=== PATIENT | male | born 1950 | race Caucasian/White ===

== ENCOUNTER → 2016-11-18 | Outpatient (CLI) | payer BC ==
[2014-10-03 13:40] VITALS: BP 126/75
[~2016-11-18] MED LIST: AMIO200T2 PO; FLUT9.9S NS; LISI-334 PO; MULT1CAP15 PO; PROP20TA PO; WARF5TAB7 PO; XARELTO PO
--- NOTE | 2016-11-18 11:47 | CARD ---
APPROVED REPORT EXAM: Two-dimensional and M-mode echocardiogram with Doppler and color Doppler. Other Information Quality : GoodHR: 57bpm Rhythm : Bradycardia INDICATION Paroxysmal atrial fibrillation RISK FACTORS Hypertension 2D DIMENSIONS RVDd3.8 (2.9-3.5cm)Left Atrium(2D)4.1 (1.6-4.0cm) IVSd1.0 (0.7-1.1cm)Aortic Root(2D)3.1 (2.0-3.7cm) LVDd4.9 (3.9-5.9cm)LVOT Diameter2.2 (1.8-2.4cm) PWd1.0 (0.7-1.1cm)LVDs3.4 (2.5-4.0cm) FS (%) 30.2 %SV63.2 ml LVEF(%)57.3 (>50%) Aortic Valve AoV Peak Gregor.196.1cm/sAoV VTI47.2cm AO Peak GR.15.4mmHgLVOT Peak Gregor.103.1cm/s AO Mean GR.9mmHgAVA (VMAX)1.97cm2 AI P 1/2 Wwcm711ki Mitral Valve MV E Deqtrtes91.0cm/sMV E Peak Gr.3mmHg MV DECEL [id number] A Gzdknwru21.7cm/s MV E Mean Gr.1mmHgE/A Ratio1.0 MV A Mgugtvqu27jzALN Planimetry1.93cm2 Pulmonary Valve PV Peak Jcvhxdvd130.7cm/s Tricuspid Valve TR P. Onhxeomk110ss/sTR Peak Gr.34mmHg Pulmonary Vein S1 Puoelstb07.7cm/sD2 Khriweai674.8cm/s PVa dbpbtcnt95panq LEFT VENTRICLE The left ventricle is normal size. There is normal left ventricular wall thickness. The left ventricu lar systolic function is normal and the ejection fraction is within normal range. The Ejection Fracti on is 55-60%. There is normal LV segmental wall motion. The left ventricular diastolic function and f illing is normal for age. RIGHT VENTRICLE The right ventricle is mildly dilated. There is normal right ventricular wall thickness. The right ve ntricular systolic function is normal. ATRIA The left atrium is moderately dilated. The right atrium size is normal. The interatrial septum is int act with no evidence for an atrial septal defect or patent foramen ovale as noted on 2-D or Doppler i maging. AORTIC VALVE The aortic valve is moderately sclerotic. The aortic valve is trileaflet but functionally bicuspid du e to the fusion of non and left coronary cusps. Doppler and Color Flow revealed moderate aortic regur gitation. There is no significant aortic valvular stenosis. MITRAL VALVE The mitral valve leaflets are mildly thickened. There is no evidence of mitral valve prolapse. There is no mitral valve stenosis. Doppler and Color Flow revealed mild to moderate mitral regurgitation. TRICUSPID VALVE Doppler and Color Flow revealed mild tricuspid regurgitation. The pulmonary artery systolic pressure is estimated at 37 mmHg. There is mild pulmonary hypertension. PULMONIC VALVE The pulmonic valve is not well visualized but appears to open adequately. Doppler and Color Flow reve aled mild pulmonic valvular regurgitation. There is no pulmonic valvular stenosis by spectral Doppler . GREAT VESSELS The aortic root is normal in size. The ascending aorta is normal in size. The IVC is normal in size a nd collapses >50% with inspiration. PERICARDIAL EFFUSION There is no evidence of significant pericardial effusion. Critical Notification Critical Value: No <Conclusion> The left ventricular systolic function is normal and the ejection fraction is within normal range. Th e Ejection Fraction is 55-60%. There is normal LV segmental wall motion. The aortic valve is moderately sclerotic. The aortic valve is trileaflet but functionally bicuspid du e to the fusion of non and left coronary cusps. Doppler and Color Flow revealed moderate aortic regurgitation. Doppler and Color Flow revealed mild to moderate mitral regurgitation. Doppler and Color Flow revealed mild tricuspid regurgitation. The pulmonary artery systolic pressure is estimated at 37 mmHg. There is mild pulmonary hypertension.
== END | disposition home or self-care (01) ==
LOC: ECHO 08:46
PROVIDERS: ATTEND Internal Medicine Cardiovascular Disease
DX: I08.3 Combined rheumatic disorders of mitral, aortic and tricuspid valves (principal); I48.0 Paroxysmal atrial fibrillation; I27.2 Other secondary pulmonary hypertension
CPT/HCPCS: 93306

== ENCOUNTER 2016-11-21 07:35 | Outpatient (CLI) | payer BC ==
[~2016-11-21] VITALS: Ht 185.4 cm; Wt 82.6 kg
[2016-11-21] VITALS (15 sets, daily range): BP systolic 135–219; BP diastolic 72–101
[2016-11-21] MEDS ORDERED: WARF5TAB7 PO (08:08)
[2016-11-21] MEDS ORDERED: NITR0.4T22 SL (08:12)
[2016-11-21 08:21] LABS: HEMATOCRIT 40.6 % (39.0-53.0); HEMOGLOBIN 13.7 g/dL (13.0-17.5); RED BLOOD COUNT 4.28 x10^6/uL (4.30-5.70); RED CELL DISTRIBUTION WIDTH 12.6 % (11.5-14.5); WHITE BLOOD COUNT 5.9 x10^3/uL (4.0-11.0)
[2016-11-21 08:31] LABS: INR 3.3 (0.8-1.1); PROTHROMBIN TIME PATIENT 31.4 SEC (11.7-14.0)
[2016-11-21 08:32] LABS: CALCIUM 8.4 mg/dL (8.5-10.1); CREATININE 1.1 mg/dL (0.7-1.3); GFR 67.4; POTASSIUM 4.2 mmol/L (3.5-5.1)
[2016-11-21] MEDS ORDERED: IOHEXOL 300 MG/ML 100ML VIAL. ONE ×2 (09:20→10:16)
--- NOTE | 2016-11-21 09:20 | PDOC ---
MODERATE SEDATION ASSESSMENT RISKS/ALTERNATIVES Risks/Alternatives Risks and alternatives of this type of sedation and procedure discussed with: RISK/ALTERNATIVES: Patient H & P ON CHART H & P H & P on chart and reviewed for co-morbid conditions and appropriate labs. H&P ON CHART: Yes STATUS PREG STATUS ASSESSED: N/A MEDS/ALLERGIES REVIEWED Meds/Allergies Reviewed Medications and Allergies including time and route of recently administered narcotics and sedatives. MEDS/ALLERGIES REVIEWED: Yes ASA RATING ASA RATING: II AIRWAY ASSESSMENT Airway Assessment Airway patency, oral function limitations, presence of caps, crowns, dentures, partials, and ability to extend neck assessed. AIRWAY ASSESSMENT: Yes MALLAMPATI SCORE MALLAMPATI SCORE: II PRE-SEDATION ASSESSMENT PRE-SEDATION ASSESSMENT: Yes ESTHER GALAN MD Nov 21, 2016 09:20
[2016-11-21] MEDS ORDERED: LIDOCAINE 2% 20 ML VIAL. ONE (09:21)
[2016-11-21] MEDS ORDERED: fentaNYL PF VIAL 100 MCG/2 ML VIAL ONE (10:24)
[2016-11-21] MEDS ORDERED: VERAPAMIL 5 MG/2 ML VIAL. ONE (10:24)
[2016-11-21] MEDS ORDERED: HEPARIN for IV BOLUS 10,000 UNIT/10 ML VIAL. ONE (10:24)
[2016-11-21] MEDS ORDERED: MIDAZOLAM HCL/PF 2 MG/2 ML VIAL. ONE (10:24)
[2016-11-21] MEDS ORDERED: NITROGLYCERIN 200 MCG/2 ML SYRINGE FOR CATH/VASC LAB. ONE (10:26)
[2016-11-21] MEDS ORDERED: IOHEXOL 300 MG/ML 100ML VIAL. IART ONE (10:30)
[2016-11-21] MEDS ORDERED: fentaNYL PF VIAL 100 MCG/2 ML VIAL IV ONE (10:30)
[2016-11-21] MEDS ORDERED: NITROGLYCERIN 200 MCG/2 ML SYRINGE FOR CATH/VASC LAB. IART ONE (10:30)
[2016-11-21] MEDS ORDERED: HEPARIN for IV BOLUS 10,000 UNIT/10 ML VIAL. IART ONE (10:30)
[2016-11-21] MEDS ORDERED: MIDAZOLAM HCL/PF 2 MG/2 ML VIAL. IV ONE (10:30)
[2016-11-21] MEDS ORDERED: VERAPAMIL 5 MG/2 ML VIAL. IART ONE (10:30)
[2016-11-21] MEDS ORDERED: LIDOCAINE 2% 20 ML VIAL. IJ ONE (10:30)
[2016-11-21] MEDS ORDERED: IV 1/2 NORMAL SALINE 1,000 ML IV SCH (10:44)
[2016-11-21] MEDS ORDERED: NITROGLYCERIN SUBLINGUAL 0.4 MG BOTTLE OF 25. SL PRN (10:45)
[2016-11-21] MEDS ORDERED: CONTRAST GIVEN MC PRN (10:45)
--- NOTE | 2016-11-21 11:17 | CARD ---
APPROVED REPORT Procedure(s) performed: Left heart catheterization, selective coronary angiography and left ventricul ography via left transradial approach. Moderate sedation: 23 min INDICATION The indication(s) include : unstable angina . PROCEDURE NARRATIVE After explaining the risks, benefits and alternative options, informed consent was obtained from carlito ent. Patient was brought to the cardiac Chiropractic Neurologist and left wrist was prepped and draped in the usual fashion after confirming a positive modified Migue's test (failed Migue's right wrist). Arterial acc ess was obtained in the right radial artery and a 6 [place] sheath was inserted. 6 [place] JL4 and 6 F [place] JR4 catheters were used to perform selective angiography of left and right coronary arteries. 6 [place] pigtail catheter was used to perform left ventriculography. Patient tolerated the procedure well. Hemostasis was achieved using TR band. There were no immediate complications. The following findings were noted. FINDINGS 1. Hemodynamics: Left ventricular end-diastolic pressure of 9 mmHg. No pullback gradient across the aortic valve. 2. Left ventriculography: Normal left ventricle systolic function with ejection fraction estimated at 60%. No significant mitral regurgitation seen. 3. Coronary angiography: a. The left main coronary artery arose from the left sinus of Valsalva, gave rise to the left anteri or descending and left circumflex arteries and did not show any significant stenosis. b. The left anterior descending artery did not show any significant stenosis. c. The left circumflex artery did not show any significant stenosis. d. The right coronary artery was a large and dominant vessel arising from the right sinus of Valsalv a that did not show any significant stenosis. Conclusion 1. No significant coronary artery disease 2. Normal left ventricular systolic function with ejection fraction estimated at 60%. Recommendations Cardiac Risk Reduction Program
== END 2016-11-21 15:30 | disposition home or self-care (01) ==
LOC: CCL 07:35
PROVIDERS: ATTEND Internal Medicine Cardiovascular Disease
DX: I20.0 Unstable angina (principal); I48.91 Unspecified atrial fibrillation; M19.91 Primary osteoarthritis, unspecified site; Z87.39 Personal history of other diseases of the musculoskeletal system and connective tissue; Z72.89 Other problems related to lifestyle
CPT/HCPCS: 36415; 80048; 85027; 85610; 85730; 93458; 99152; 99153; C1769; C1892; J1644; J2250; J3010; J3490; Q9967; J2001

== ENCOUNTER → 2018-10-26 | Day surgery (SDC) | payer BC ==
[~2018-10-26] MED LIST changes: -AMIO200T2 PO; +AMIO200T4 PO; +FERR325T14 PO; +HYDROmorphone 2 MG/ML VIAL IV PRN; +IV RINGERS,LACTATED 1000ML 1,000 ML IV SCH; +LIDOCAINE 2% PF 5 ML VIAL. ONE; +MORPHINE SULFATE 2 MG/ML VIAL. IV PRN; +NITR0.4T22 SL; +ONDANSETRON PF 4 MG/2 ML VIAL. IV PRN; +PROCHLORPERAZINE 10 MG/2 ML VIAL. IV PRN; +PROPOFOL 40 ML IV ONE; +SILD20TA2 PO; +WARF-31 PO; -WARF5TAB7 PO; +fentaNYL PF VIAL 100 MCG/2 ML VIAL IV PRN
[2018-10-26 14:00] VITALS: BP 171/80
== END ==
LOC: SURG 12:28
PROVIDERS: ATTEND Surgery
DX: K57.30 Diverticulosis of large intestine without perforation or abscess without bleeding (principal); I10 Essential (primary) hypertension; I48.0 Paroxysmal atrial fibrillation; I25.10 Atherosclerotic heart disease of native coronary artery without angina pectoris; Z98.890 Other specified postprocedural states; Z98.42 Cataract extraction status, left eye; Z98.41 Cataract extraction status, right eye; Z72.89 Other problems related to lifestyle; Z96.1 Presence of intraocular lens
CPT/HCPCS: 45378; J2001; J2704

== ENCOUNTER → 2018-12-17 | Outpatient (CLI) | payer BC ==
[2018-10-26 14:00] VITALS: BP 171/80
[~2018-12-17] MED LIST changes: -HYDROmorphone 2 MG/ML VIAL IV PRN; -IV RINGERS,LACTATED 1000ML 1,000 ML IV SCH; -LIDOCAINE 2% PF 5 ML VIAL. ONE; -MORPHINE SULFATE 2 MG/ML VIAL. IV PRN; -ONDANSETRON PF 4 MG/2 ML VIAL. IV PRN; -PROCHLORPERAZINE 10 MG/2 ML VIAL. IV PRN; -PROPOFOL 40 ML IV ONE; +REGADENOSON 0.4 MG/5 ML DISP.SYRIN. IV ONE; -fentaNYL PF VIAL 100 MCG/2 ML VIAL IV PRN
--- NOTE | 2018-12-17 14:30 | RAD ---
MR#: [id number] Date of Study: 12/17/2018 Ordering Physician: ESTHER GALAN, Referring Physician: MICHELLE NEWBERRY Tech: RESHMA Ruiz APPROVED REPORT Test Type: Pharmacological Stress Nurse/Tech: Moni Castillo R.N. Test Indications: SALINAS, afib Cardiac History: afib w/cardioversion x3, htn Medications: See Electronic Medical Record Medical History: See Electronic Medical Record Resting ECG: SB w/ inverted T wave in lead AVL, 1st degree AVB, very scant ST elevation in lead s II,III,AVF,V3 Resting Heart Rate: 53 bpm Resting Blood Pressure: 204/76mmHg Pretest Chest Pain: No chest pain Nurse/Tech Notes S1S2, murmur, lungs CTA Consent: The procedure was explained to the patient in lay terms. Informed consent was witnessed. Andrea eout was entered into [facility]. History and Stress Test performed by RESHMA Ruiz Pharm. Details Pharmacologic stress testing was performed using 0.4mg per 5ml of regadenoson given intravenously ove r 7-10 seconds. Stress Symptoms SOA,nausea POST EXERCISE Reason for Termination: Infusion complete Max HR: 68 bpm Max Blood Pressure: 165/71mmHg Blood Pressure response to exercise: had a large drop in b/p post meghna then climbed every b/p afterwa rds Heart Rate response to exercise: wnl Chest Pain: No. Arrhythmia: No. ST Change: No. no changes from above noted abnormal baseline INTERPRETATION Stress EKG Conclusion: No evidence of stress induced EKG changes. Imaging Protocol IMAGE PROTOCOL: Rest Tc-99m/stress Tc-99m 1 day Rest: Stress: Viability: Radiopharm.Tc99m WbtnwyapqYf58h Sestamibi Dose10.5mCi 33mCi Duration 15min. 10min. Img Date 12/17/2018 12/17/2018 Inj-Img Bcij51wko. 60min. Rest Admin Site:IV - Left AntecubitalAdministrator:RESHMA Ruiz Stress Admin Site: IV - Left AntecubitalAdministrator: Rosendo Maria, RT (R)(N) STRESS DATA End Diast. Vol.164.0mlAv. Heart Rate57.0bpm End Syst. Vol.57.0mlCO Index BSA0.0L/min Myocardial Xvvz798.0gEject. Ijmmjkwk34.0% Stress Rates Pk. Fill Rate2.43EDV/secLVtime Pk. Fill 196.69msec Pk. Empty Rate2.95ESV/secLVtime Pk. Amvbz064.24msec 03/08 Pk. Fill1.28EDV/sec Stress Scores Regional WT0.00Summed WT1.00 Regional WM0.00Summed WM4.00 The rest and stress images show normal perfusion, normal contraction and thickening. LV Perf. Quant 17 Seg. SSS0.00 17 Seg. SRS3.00 17 Seg. SDS0.00 Stress Defect Extent (% LAD)0.00Rest Defect Extent (% LAD)11.30Rev. Defect Extent (% LAD)0.00 Stress Defect Extent (% LCX) 0.00Rest Defect Extent (% LCX)0.00Rev. Defect Extent (% LCX)0.00 Stress Defect Extent (% RCA)0.00Rest Defect Extent (% RCA)6.70Rev. Defect Extent (% RCA)0.00 Stress Defect Extent (% KEN)0.00Rest Defect Extent (% KEN)5.20Rev. Defect Extent (% KEN)0.00 Other Information Quality:Average Risk Assessment: Low Risk Conclusion 1. No evidence of EKG changes with stress testing. 2. Normal perfusion at stress/rest. 3. Low risk study. 4. EF > 60%. Signed by : Nico Cifuentes, Electronically Approved : 12/17/2018 14:29:28
--- NOTE | 2018-12-17 14:52 | CARD ---
MR#: [id number] Date of Study: 12/17/2018 Ordering Physician: ESTHER GALAN, Referring Physician: ESTHER GALAN, Tech: Lili Nixon APPROVED REPORT EXAM: Two-dimensional and M-mode echocardiogram with Doppler and color Doppler. Other Information Quality : GoodHR: 55bpm INDICATION Atrial Fibrillation 2D DIMENSIONS RVDd3.2 (2.9-3.5cm)Left Atrium(2D)4.0 (1.6-4.0cm) IVSd1.0 (0.7-1.1cm)Aortic Root(2D)3.4 (2.0-3.7cm) LVDd4.7 (3.9-5.9cm)LVOT Diameter2.0 (1.8-2.4cm) PWd1.2 (0.7-1.1cm)LVDs3.2 (2.5-4.0cm) FS (%) 32.3 %SV62.8 ml LVEF(%)60.6 (>50%) Aortic Valve AoV Peak Gregor.224.1cm/sAoV VTI47.5cm AO Peak GR.20.1mmHgLVOT Peak Gregor.147.3cm/s LVOT VTI 34.49cmAO Mean GR.8mmHg KIRSTEN (VMAX)1.63up5MMX (VTI)2.29cm2 AI P 1/2 Adaf370zh Mitral Valve MV E Ogzfknjh63.8cm/sMV DECEL CVXX258ci MV A Wyfwqeam58.8cm/sMV ZIB51yb E/A Ratio1.4MVA (PHT)2.98cm2 TDI E/Lateral E'6.1E/Medial E'11.8 Pulmonary Valve PV Peak Lmfsjfyv778.5cm/sPV Peak Grad.5mmHg Tricuspid Valve TR P. Fzfezxwn126iu/sRAP VCVJFHWR8nbJt TR Peak Gr.62baHtNWHH63pjKd Pulmonary Vein S1 Pseyotot37.6cm/sD2 Sybikkxg26.5cm/s PVa yxxfdrex852vgvr LEFT VENTRICLE The left ventricle is normal size. There is mild concentric left ventricular hypertrophy. The left ve ntricular systolic function is normal and the ejection fraction is within normal range. The Ejection Fraction is 55-60%. There is normal LV segmental wall motion. Transmitral Doppler flow pattern is Gra de II-pseudonormal filling dynamics. RIGHT VENTRICLE The right ventricle is normal size. There is normal right ventricular wall thickness. The right ventr icular systolic function is normal. ATRIA The left atrium is borderline dilated. The right atrium size is normal. The interatrial septum is int act with no evidence for an atrial septal defect or patent foramen ovale as noted on 2-D or Doppler i maging. AORTIC VALVE The aortic valve is calcified and displays decreased opening. Doppler and Color Flow revealed mild ao rtic regurgitation. There is no significant aortic valvular stenosis. Calculated aortic valve area is 2.2 cm2 with maximum pressure gradient of 20 mmHg and mean pressure gradient of 8 mmHg. MITRAL VALVE The mitral valve is normal in structure and function. There is no evidence of mitral valve prolapse. There is no mitral valve stenosis. Doppler and Color-flow revealed trace to mild mitral regurgitation . TRICUSPID VALVE The tricuspid valve is normal in structure and function. Doppler and Color Flow revealed trace tricus pid regurgitation with an estimated PAP of 40 mmHg. There is no tricuspid valve prolapse or vegetatio n. There is no tricuspid valve stenosis. PULMONIC VALVE The pulmonic valve is not well visualized. Doppler and Color Flow revealed no pulmonic valvular regur gitation. There is no pulmonic valvular stenosis. GREAT VESSELS The aortic root is normal in size. The IVC is normal in size and collapses >50% with inspiration. PERICARDIAL EFFUSION There is no evidence of significant pericardial effusion. Critical Notification Critical Value: No <Conclusion> The left ventricular systolic function is normal and the ejection fraction is within normal range. Th e Ejection Fraction is 55-60%. There is normal LV segmental wall motion. Calcific aortic valve with restricted leaflet motion without significant stenosis by gradient criteri a. Signed by : Nico Cifuentes, Electronically Approved : 12/17/2018 14:51:37
== END | disposition home or self-care (01) ==
LOC: NM 07:57
PROVIDERS: ATTEND Internal Medicine Cardiovascular Disease
DX: I08.0 Rheumatic disorders of both mitral and aortic valves (principal); I48.0 Paroxysmal atrial fibrillation
CPT/HCPCS: 78452; 93017; 93306; A9500; J2785

== ENCOUNTER → 2020-06-18 | Outpatient (CLI) | payer MEDICARE ==
[2018-10-26 14:00] VITALS: BP 171/80
[~2020-06-18] MED LIST changes: -AMIO200T4 PO; +AMIO200T6 PO; -LISI-334 PO; +LISI20TA18 PO; -REGADENOSON 0.4 MG/5 ML DISP.SYRIN. IV ONE; -SILD20TA2 PO; +SILD20TA4 PO
[2020-06-18] MEDS: REGADENOSON 0.4 MG/5 ML DISP.SYRIN. IV ONE (12:11)
--- NOTE | 2020-06-18 16:11 | RAD ---
MR#: [id number] Date of Study: 06/18/2020 Ordering Physician: ESTHER GALAN, Referring Physician: MICHELLE NEWBERRY Tech: RT Lian Segundo) (N) APPROVED REPORT Test Type: Pharmacological Stress Nurse/Tech: Gato Painter RN Test Indications: chronic diastolic heart failure, new onset A-fib Cardiac History: A-fib, cardioversion x 2, Medications: See Electronic Medical Record Medical History: See Electronic Medical Record Resting ECG: Atrial fibrillation Resting Heart Rate: 77 bpm Resting Blood Pressure: 155/51mmHg Pretest Chest Pain: None Nurse/Tech Notes Lungs CTA Consent: The procedure was explained to the patient in lay terms. Informed consent was witnessed. Andrea eout was entered into [employer]. History and Stress Test performed by RT Angela (R) (N) Pharm. Details Pharmacologic stress testing was performed using 0.4mg per 5ml of regadenoson given intravenously ove r 7-10 seconds. Stress Symptoms No chest pain or symptoms. POST EXERCISE Reason for Termination: Infusion complete Max HR: 101 bpm Max Blood Pressure: 134/81mmHg Blood Pressure response to exercise: Normal blood pressure response during stress. Heart Rate response to exercise: normal response Chest Pain: No. Arrhythmia: No. ST Change: No. INTERPRETATION Stress EKG Conclusion: Baseline EKG showed atrial fibrillation. Non-diagnostic changes at peak stres s. No other arrhythmias. Rest: Stress: Viability: Radiopharm.Tc99m EnidrcmciVk99h Sestamibi Dose10.4mCi 30.2mCi Duration 13min. 13min. Img Date 06/18/2020 06/18/2020 Rest Admin Site:IV - Left AntecubitalAdministrator:RT Lian Miller)(N) Stress Admin Site: IV - Left AntecubitalAdministrator: RT Lian Miller)(N) STRESS DATA End Diast. Vol.138.0mlLVEDV index BSA69.0ml End Syst. Vol.50.0mlLVESV index BSA25.0ml Myocardial Ndfq548.0gEject. Sxjyzatl50.0% Stress Scores Regional WT1.00Summed WT8.00 Regional WM0.00Summed WM4.00 Study quality was good. Left Ventricular size was Normal at Rest and Stress. Lung uptake was . Left Ventricular ejection fraction is 64%. The rest and stress images show normal perfusion, normal contraction and thickening. LV Perf. Quant 17 Seg. SSS0.00 17 Seg. SRS0.00 17 Seg. SDS0.00 Stress Defect Extent (% LAD)2.50Rest Defect Extent (% LAD)0.00Rev. Defect Extent (% LAD)2.50 Stress Defect Extent (% LCX) 0.00Rest Defect Extent (% LCX)0.00Rev. Defect Extent (% LCX)0.00 Stress Defect Extent (% RCA)0.00Rest Defect Extent (% RCA)0.00Rev. Defect Extent (% RCA)0.00 Stress Defect Extent (% KEN)0.90Rest Defect Extent (% KEN)0.00Rev. Defect Extent (% KEN)0.90 Conclusion 1. Regadenoson cardioisotope stress test did not show any evidence of ischemia or infarct. 2. Normal left ventricular systolic function with ejection fraction calculated at 64%. 3. Low risk for cardiac events. Signed by : Esther Galan, Electronically Approved : 06/18/2020 16:11:14
--- NOTE | 2020-06-18 16:33 | CARD ---
MR#: [id number] Date of Study: 06/18/2020 Ordering Physician: ESTHER GALAN, Referring Physician: ESTHER GALAN Tech: Amarilis Burgos GM APPROVED REPORT EXAM: Two-dimensional and M-mode echocardiogram with Doppler and color Doppler. Other Information Quality : AverageHR: 79bpm Rhythm : NSRAtrial Fibrillation INDICATION Atrial Fibrillation RISK FACTORS Hypertension Hyperlipidemia 2D DIMENSIONS RVDd3.3 (2.9-3.5cm)Left Atrium(2D)4.1 (1.6-4.0cm) IVSd1.3 (0.7-1.1cm)Aortic Root(2D)3.3 (2.0-3.7cm) LVDd4.8 (3.9-5.9cm)LVOT Diameter2.4 (1.8-2.4cm) PWd1.3 (0.7-1.1cm)LVDs3.6 (2.5-4.0cm) FS (%) 25.2 %SV52.5 ml LVEF(%)49.7 (>50%) Aortic Valve AoV Peak Gregor.255.9cm/sAoV VTI58.6cm AO Peak GR.26.2mmHgLVOT Peak Gregor.122.0cm/s AO Mean GR.15mmHgAVA (VMAX)2.14cm2 AI P 1/2 Uuhw200rg Pulmonary Valve PV Peak Mxmafpgj687.1cm/s Tricuspid Valve TR P. Wbwvwbvp318nk/sTR Peak Gr.37mmHg LEFT VENTRICLE The left ventricle is normal size. There is mild concentric left ventricular hypertrophy. The left ve ntricular systolic function is normal. Estimated ejection fraction 65%. There is normal LV segmental wall motion. RIGHT VENTRICLE The right ventricle is normal size. There is normal right ventricular wall thickness. The right ventr icular systolic function is normal. ATRIA The left atrium is mildly dilated. The right atrium is borderline dilated. The interatrial septum is intact with no evidence for an atrial septal defect or patent foramen ovale as noted on 2-D or Dopple r imaging. AORTIC VALVE The aortic valve is calcified and displays decreased opening. Doppler and Color Flow revealed mild ao rtic regurgitation. There is mild valvular aortic stenosis. MITRAL VALVE The mitral valve is normal in structure and function. There is no evidence of mitral valve prolapse. There is no mitral valve stenosis. Doppler and Color-flow revealed mild to moderate mitral regurgitat ion. TRICUSPID VALVE The tricuspid valve is normal in structure and function. Doppler and Color Flow revealed mild tricusp id regurgitation. Estimated PAP 40 mmHg. There is no tricuspid valve stenosis. PULMONIC VALVE The pulmonary valve is normal in structure and function. Doppler and Color Flow revealed mild pulmoni c valvular regurgitation. GREAT VESSELS The aortic root is normal in size. The ascending aorta is normal in size. The IVC is normal in size a nd collapses >50% with inspiration. PERICARDIAL EFFUSION There is no evidence of significant pericardial effusion. Critical Notification Critical Value: No <Conclusion> The left ventricular systolic function is normal. Estimated ejection fraction 65%. There is normal LV segmental wall motion. Mild aortic regurgitation. Mild to moderate mitral regurgitation. Mild tricuspid regurgitation. Estimated PAP 40 mmHg. There is no evidence of significant pericardial effusion. Signed by : Esther Galan, Electronically Approved : 06/18/2020 16:33:23
== END ==
LOC: NM 09:26
PROVIDERS: ATTEND Internal Medicine Cardiovascular Disease
DX: I08.8 Other rheumatic multiple valve diseases (principal); I48.0 Paroxysmal atrial fibrillation; I50.32 Chronic diastolic (congestive) heart failure
CPT/HCPCS: 78452; 93017; 93306; A9500; J2785